=== PATIENT | male | born 1940 | race Caucasian/White ===

== ENCOUNTER → 2016-10-29 | Outpatient (CLI) | payer OTHER, BC ==
[~2016-10-29] MED LIST: ALBUTEROL INHAL17 GM IH; BACTRIM DS TAB1 EACH PO; GLUCOPHAGE XR500 MG PO; GLUCOPHAGE500 MG; GLUCOTROL5 MG; HERBAL DRUGS; HYDROCODONE-AP1 EAC6 PO; LEVEMIR SUBQ; METFORMIN HCL500 MG PO; MOUTHSPRAY10 ML PO; NOHOMEMEDICATIONS; NOVOLOG100 UNIT/1 SUBQ; PREDNISONE 20 M20 MG PO; UNICOMPLEX M TA1 TA1 PO; [UNRECOGNIZED DRUG - OTHER]
== END ==
LOC: RAD 16:05
DX: M47.896 Other spondylosis, lumbar region (principal); M54.2 Cervicalgia

== ENCOUNTER → 2016-11-09 | Outpatient (CLI) | payer OTHER, BC | LOC: MRI 10:37 | DX: M47.896 Other spondylosis, lumbar region (principal) ==

== ENCOUNTER 2017-04-20 20:31 | Inpatient (IN) | payer OTHER, BC ==
[~2017-04-20] VITALS: Ht 177.8 cm; Wt 97.5 kg
[2017-04-20 20:35] VITALS: BP 117/65
[2017-04-20 21:33] LABS: ABSOLUTE NEUTROPHILS 6.9 thou/uL (1.4-8.2); BASOPHILS 1.2 % (0.0-2.0); EOSINOPHILS 0.9 % (0.0-3.0); HEMATOCRIT 43.6 % (42.0-52.0); HEMOGLOBIN 15.9 gm/dL (14.0-18.0); LYMPHOCYTES 18.9 % (24.0-44.0); MCH 32.5 pg (26.0-34.0); MCHC 36.5 g/dL (28.0-37.0); MCV 88.9 fL (80.0-100.0); MONOCYTES 11.2 % (1.0-8.0); PLATELET COUNT 273 thou/uL (150-400); POLYS 67.8 % (36.0-66.0); RDW 12.7 % (10.5-14.5); WBC 10.1 thou/uL (4.0-11.0)
[2017-04-20 21:37] LABS: MANUAL DIFF NO
[2017-04-20 21:38] LABS: CALCIUM 9.5 mg/dL (8.5-10.1); CREATININE 0.9 mg/dL (0.7-1.3); POTASSIUM 4.1 mmol/L (3.5-5.1)
[2017-04-20 21:44] LABS: ALBUMIN 3.5 g/dL (3.4-5.0); TOTAL BILIRUBIN 1.1 mg/dL (<0.1-1.0); TOTAL PROTEIN 7.4 g/dL (6.4-8.2)
[2017-04-20 22:02] VITALS: BP 121/48
[2017-04-20 22:09] VITALS: BP 121/48
[2017-04-20 22:45] VITALS: BP 124/58
[2017-04-20 23:30] VITALS: BP 139/87
[2017-04-21 00:35] LABS: HEMATOCRIT 39.4 % (42.0-52.0); MCH 32.1 pg (26.0-34.0); MCHC 35.6 g/dL (28.0-37.0); MCV 90.2 fL (80.0-100.0); RBC 4.37 mil/uL (4.50-6.00); RDW 12.8 % (10.5-14.5); WBC 8.9 thou/uL (4.0-11.0)
[2017-04-21 00:45] LABS: CALCIUM 8.3 mg/dL (8.5-10.1)
[2017-04-21 04:00] VITALS: BP 134/74
[2017-04-21 07:58] VITALS: BP 118/58
[2017-04-21 15:55] VITALS: BP 133/54
[2017-04-21 22:03] VITALS: BP 133/96
[2017-04-22 05:35] VITALS: BP 135/94
[2017-04-22 08:00] VITALS: BP 139/74
[2017-04-22] MEDS ORDERED: KEFLEX250 MG PO (13:15)
[2017-04-22 13:25] VITALS: BP 139/74
== END 2017-04-22 14:20 | disposition home or self-care (01) | DRG 603 ==
LOC: ER 20:31 → EROBS 21:48 → 4N 21:48 → ENTRNSPT 04-22 14:18 → EDTRNSPTSTS 04-22 14:20 → 4N 04-22 14:20
PROVIDERS: Emergency Medicine; Nurse Practitioner Family
DX: L03.113 Cellulitis of right upper limb (principal); G89.29 Other chronic pain; M54.9 Dorsalgia, unspecified; E11.9 Type 2 diabetes mellitus without complications; Z79.1 Long term (current) use of non-steroidal anti-inflammatories (NSAID)
CPT/HCPCS: 10091

== ENCOUNTER 2017-07-29 16:13 | Emergency (ER) | payer OTHER, BC ==
[~2017-07-29] VITALS: Ht 177.8 cm; Wt 97.1 kg
[~2017-07-29 16:13] MED LIST changes: +KEFLEX250 MG PO
[2017-07-29] MEDS ORDERED: KEFLEX500 M1 PO ×2 (16:44→19:09)
[2017-07-29 17:02] LABS: HEMATOCRIT 41.7 % (42.0-52.0); HEMOGLOBIN 14.8 gm/dL (14.0-18.0); MCH 31.9 pg (26.0-34.0); MCHC 35.6 g/dL (28.0-37.0); MCV 89.7 fL (80.0-100.0); RBC 4.65 mil/uL (4.50-6.00); RDW 13.3 % (10.5-14.5); WBC 5.5 thou/uL (4.0-11.0)
[2017-07-29 17:14] LABS: CALCIUM 8.7 mg/dL (8.5-10.1); CREATININE 1.2 mg/dL (0.7-1.3)
[2017-07-29] MEDS ORDERED: HYDROCODONE-AP1 EAC6 PO (19:09)
== END 2017-07-29 19:23 | disposition home or self-care (01) ==
LOC: ER 16:13
PROVIDERS: Physician Assistant
DX: M70.31 Other bursitis of elbow, right elbow (principal); E11.65 Type 2 diabetes mellitus with hyperglycemia; Z91.14 Patient's other noncompliance with medication regimen; G89.29 Other chronic pain; M54.9 Dorsalgia, unspecified; Y93.89 Activity, other specified

== ENCOUNTER 2018-10-28 17:20 | Inpatient (IN) | payer OTHER, BC ==
[~2018-10-28] VITALS: Ht 177.8 cm; Wt 97.5 kg
[~2018-10-28 17:20] MED LIST changes: +KEFLEX500 M1 PO
[2018-10-28 17:22] VITALS: BP 111/53
[2018-10-28 17:56] LABS: ABSOLUTE NEUTROPHILS 6.9 thou/uL (1.4-8.2); BASOPHILS 1.2 % (0.0-2.0); EOSINOPHILS 0.8 % (0.0-3.0); HEMATOCRIT 39.9 % (42.0-52.0); HEMOGLOBIN 13.9 gm/dL (14.0-18.0); LYMPHOCYTES 16.2 % (24.0-44.0); MCH 31.1 pg (26.0-34.0); MCHC 34.9 g/dL (28.0-37.0); MCV 89.1 fL (80.0-100.0); MONOCYTES 6.8 % (1.0-8.0); PLATELET COUNT 220 thou/uL (150-400); RBC 4.47 mil/uL (4.50-6.00); RDW 13.4 % (10.5-14.5); WBC 9.2 thou/uL (4.0-11.0)
[2018-10-28 18:00] LABS: ANION GAP 12 mmol/L (7-16); BUN 12 mg/dL (7-18); CALCIUM 8.5 mg/dL (8.5-10.1); CHLORIDE 94 mmol/L (98-107); CO2 25 mmol/L (21-32); CREATININE 1.1 mg/dL (0.7-1.3); GLUCOSE 490 mg/dL (74-106); SODIUM 131 mmol/L (136-145)
[2018-10-28 18:10] LABS: ALBUMIN 2.9 g/dL (3.4-5.0); SGOT 10 U/L (15-37); SGPT 15 U/L (30-65); TOTAL BILIRUBIN 1.2 mg/dL (<0.1-1.0); TROPONIN-I <0.06 ng/mL (<0.06)
[2018-10-28 19:07] VITALS: BP 126/48
[2018-10-28 19:25] VITALS: BP 123/55
[2018-10-28 19:50] VITALS: BP 147/72
[2018-10-28 20:30] LABS: ALBUMIN 3.1 g/dL (3.4-5.0); TOTAL PROTEIN 7.2 g/dL (6.4-8.2)
[2018-10-28 21:06] LABS: TSH 1.267 uIU/mL (0.358-3.740)
[2018-10-28 23:16] LABS: URINE BILIRUBIN NEGATIVE (Negative); URINE BLOOD NEGATIVE (Negative); URINE CLARITY CLEAR; URINE COLOR YELLOW; URINE GLUCOSE-RANDOM* 3+ (Negative); URINE KETONES TRACE (Negative); URINE LEUKOCYTES-REFLEX NEGATIVE (Negative); URINE PROTEIN (DIPSTICK) NEGATIVE (Negative); URINE SPECIFIC GRAVITY <= 1.005 (1.005-1.035); URINE UROBILINOGEN 0.2 E.U./dl (0.2-1.0)
[2018-10-28 23:23] LABS: URINE NITRITE-REFLEX POSITIVE (Negative)
[2018-10-28 23:35] LABS: CASTS None Seen /LPF (None Seen); MUCUS None Seen strn/LPF (None Seen); SQUAMOUS None Seen /LPF (0-3)
[2018-10-28 23:36] LABS: CRYSTALS None Seen /LPF (None Seen); URINE RBC 0-2 Rare /HPF (0-2); WBC CLUMPS Few (None Seen)
--- NOTE | 2018-10-29 04:44 | NUR ---
PT ARRIVED ON UNIT AT APPROX 1999 FROM ER. ADMITTED WITH HYPERGLYCEMIA. COMES FROM HOME ALONE. VOIDING PER URINAL. LORTAB PROVIDING RELIEF FOR CHRONIC LOW BACK PAIN. RESTING COMFORTABLY. NO NEEDS VOICED. CALL LIGHT WITHIN REACH. WILL CONTINUE TO PROVIDE FREQUENT OBSERVATION.
[2018-10-29 04:55] VITALS: BP 104/44
[2018-10-29 05:01] LABS: HEMATOCRIT 36.5 % (42.0-52.0); MCH 31.6 pg (26.0-34.0); MCHC 35.6 g/dL (28.0-37.0); MCV 88.7 fL (80.0-100.0); RBC 4.11 mil/uL (4.50-6.00); RDW 13.4 % (10.5-14.5); WBC 7.6 thou/uL (4.0-11.0)
[2018-10-29 05:24] LABS: ANION GAP 7 mmol/L (7-16); BUN 9 mg/dL (7-18); CALCIUM 8.2 mg/dL (8.5-10.1); CHLORIDE 102 mmol/L (98-107); CO2 27 mmol/L (21-32); CREATININE 0.7 mg/dL (0.7-1.3); GLUCOSE 249 mg/dL (74-106); POTASSIUM 3.5 mmol/L (3.5-5.1); SODIUM 136 mmol/L (136-145); TROPONIN-I <0.06 ng/mL (<0.06)
[2018-10-29 07:35] VITALS: BP 102/60
--- NOTE | 2018-10-29 07:53 | NUR ---
ASSESMENT COMPLETED. VSS. A/O. DENIES PAIN. NO NOTED SOA. NO NV. PT RESTING IN BED APPEARS COMFORTABLE. WILL CONT. TO MONITOR.
[2018-10-29] MEDS ORDERED: [UNRECOGNIZED DRUG - OTHER] PO (11:48)
[2018-10-29] MEDS ORDERED: LEVAQUIN 500 M500 M1 PO (12:16)
[2018-10-29 12:22] VITALS: BP 102/60
--- NOTE | 2018-10-29 13:34 | NUR ---
DC INSTRUCTIONS GIVEN TO PT. PT VERBALIZED UNDERSTANDING. PT TO DC HOMEWITH SELF CARE.
--- NOTE | 2018-10-30 08:08 | EKG ---
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 : 1940 Requested By: Jose Pederson Order Number: [id number] MD: Jass Keyes Measurements Intervals [place] Rate: 93 P: 66 DE: 197 QRS: 82 QRSD: 140 T: 11 QT: 354 QTc: 441 Interpretive Statements Sinus rhythm Right bundle branch block Compared to ECG 01/02/2014 07:05:26 No significant changes Electronically Signed On 10-30-2018 8:07:52 CDT by Jass Keyes [email or web address] ��������������������������������������������� <ELECTRONICALLY SIGNED> ���������������������������������������� By: Jass Keyes MD ��������������������������������������������� 10/30/18 0807 [id number] 25 Jass Keyes MD /[facility]
== END 2018-10-29 13:40 | disposition home or self-care (01) | DRG 638 ==
LOC: ER 17:20 → EROBS 18:40 → 4E 19:49
PROVIDERS: Emergency Medicine; ADMIT Internal Medicine
DX: E11.65 Type 2 diabetes mellitus with hyperglycemia (principal); E87.1 Hypo-osmolality and hyponatremia; N39.0 Urinary tract infection, site not specified; G89.29 Other chronic pain; M54.9 Dorsalgia, unspecified; Z96.641 Presence of right artificial hip joint; E83.42 Hypomagnesemia; Z91.14 Patient's other noncompliance with medication regimen; Z79.899 Other long term (current) drug therapy
CPT/HCPCS: 10183

== ENCOUNTER 2019-01-10 12:33 | Emergency (ER) | payer OTHER, BC ==
[~2019-01-10] VITALS: Ht 177.8 cm; Wt 97.5 kg
[~2019-01-10 12:33] MED LIST changes: +LEVAQUIN 500 M500 M1 PO; +[UNRECOGNIZED DRUG - OTHER] PO
[2019-01-10 14:03] VITALS: BP 146/81
== END 2019-01-10 14:04 | disposition home or self-care (01) ==
LOC: ER 12:33
DX: S20.469A Insect bite (nonvenomous) of unspecified back wall of thorax, initial encounter (principal); E11.65 Type 2 diabetes mellitus with hyperglycemia; G89.29 Other chronic pain; M54.9 Dorsalgia, unspecified; Z96.641 Presence of right artificial hip joint; Z98.890 Other specified postprocedural states; W57.XXXA Bitten or stung by nonvenomous insect and other nonvenomous arthropods, initial encounter; Y92.89 Other specified places as the place of occurrence of the external cause; Y93.89 Activity, other specified; Y99.8 Other external cause status

== ENCOUNTER 2020-07-20 20:28 | Emergency (ER) | payer OTHER, BC ==
[~2020-07-20] VITALS: Ht 177.8 cm; Wt 95.3 kg
[2020-07-20] MEDS ORDERED: LEVEMIR100 UNIT/1 SUBQ (20:39)
[2020-07-20 21:48] LABS: ABSOLUTE NEUTROPHILS 6.9 thou/uL (1.4-8.2); EOSINOPHILS 3.3 % (0.0-3.0); HEMATOCRIT 33.2 % (42.0-52.0); HEMOGLOBIN 11.3 gm/dL (14.0-18.0); LYMPHOCYTES 14.3 % (24.0-44.0); MCV 88.4 fL (80.0-100.0); MONOCYTES 8.7 % (1.0-8.0); PLATELET COUNT 235 thou/uL (150-400); POLYS 72.7 % (36.0-66.0); RBC 3.76 mil/uL (4.50-6.00); RDW 15.2 % (10.5-14.5); WBC 9.4 thou/uL (4.0-11.0)
[2020-07-20 22:01] LABS: ANION GAP 6 mmol/L (7-16); BUN 20 mg/dL (7-18); CALCIUM 8.7 mg/dL (8.5-10.1); CHLORIDE 105 mmol/L (98-107); CO2 32 mmol/L (21-32); GLUCOSE 144 mg/dL (74-106); POTASSIUM 4.3 mmol/L (3.5-5.1); SODIUM 143 mmol/L (136-145)
[2020-07-20 22:12] LABS: URINE BILIRUBIN NEGATIVE (Negative); URINE BLOOD NEGATIVE (Negative); URINE CLARITY CLEAR; URINE COLOR YELLOW; URINE GLUCOSE-RANDOM* NEGATIVE (Negative); URINE KETONES NEGATIVE (Negative); URINE LEUKOCYTES-REFLEX NEGATIVE (Negative); URINE NITRITE-REFLEX NEGATIVE (Negative); URINE PROTEIN (DIPSTICK) NEGATIVE (Negative); URINE SPECIFIC GRAVITY 1.025 (1.005-1.035); URINE UROBILINOGEN 0.2 E.U./dl (0.2-1.0)
[2020-07-20 22:16] LABS: MAGNESIUM 1.7 mg/dL (1.8-2.4); PHOSPHORUS 3.5 mg/dL (2.6-4.7); SALICYLATE < 2.8 mg/dL (2.8-20.0); SGOT 15 U/L (15-37); SGPT 17 U/L (16-63); TOTAL BILIRUBIN 0.5 mg/dL (0.2-1.0); TOTAL PROTEIN 7.6 g/dL (6.4-8.2); TROPONIN-I <0.06 ng/mL (<0.06)
[2020-07-20 22:26] LABS: AMP/METHAMP Negative (Negative); BARBITURATES Negative (Negative); BENZODIAZEPINES Negative (Negative); COCAINE Negative (Negative); METHADONE Negative (Negative); OPIATES Negative (Negative); PCP Negative (Negative)
[2020-07-20 22:42] VITALS: BP 140/44
--- NOTE | 2020-07-21 07:26 | EKG ---
[place] [address] [facility] [place] [address] ELECTROCARDIOGRAM REPORT Name: BYRON REID [facility] [id number] Admission: 07/20/20 Attend Phys: Discharge: 07/20/20 Date of : 44 Report #: [id number] [facility] Test Date: 2020-07-20 Test Time: 21:13:28 Pat Name: BYRON REID Department: Room: Gender: M Manager Play: EUN : 1940 Requested By: Summer Sullivan Order Number: [id number] MD: Min Lombardo Measurements Intervals [place] Rate: 66 P: 53 GA: 235 QRS: 51 QRSD: 140 T: 30 QT: 417 QTc: 437 Interpretive Statements Sinus rhythm Prolonged GA interval Right bundle branch block Compared to ECG 10/28/2018 17:26:50 First degree AV block now present Electronically Signed On 07-21-2020 7:26:15 CDT by Min Lombardo [email or web address] <ELECTRONICALLY SIGNED> By: Min Lombardo MD, [facility] 07/21/20 0726 2113 12 Min Lombardo MD, FACC /EPI
== END 2020-07-20 23:00 | disposition home or self-care (01) ==
LOC: ER 20:28
DX: R62.7 Adult failure to thrive (principal); E83.42 Hypomagnesemia; D64.9 Anemia, unspecified; E11.9 Type 2 diabetes mellitus without complications; Z79.4 Long term (current) use of insulin

== ENCOUNTER 2020-08-15 08:26 | Emergency (ER) | payer OTHER, BC ==
[~2020-08-15] VITALS: Ht 177.8 cm; Wt 97.1 kg
[~2020-08-15 08:26] MED LIST changes: +LEVEMIR100 UNIT/1 SUBQ
[2020-08-15] MEDS ORDERED: DOXYCYCLINE 10100 MG PO (08:51)
[2020-08-15 09:34] VITALS: BP 128/65
== END 2020-08-15 09:36 | disposition home or self-care (01) ==
LOC: ER 08:26
DX: L02.811 Cutaneous abscess of head [any part, except face] (principal); E11.9 Type 2 diabetes mellitus without complications; G89.29 Other chronic pain; Z79.4 Long term (current) use of insulin